=== PATIENT | female | born 1975 | race Caucasian/White ===

== ENCOUNTER 2024-06-28 05:06 | Emergency (ER) | payer MEDICAID, SELFPAY ==
[2024-06-28 05:09] VITALS: BP 187/118; PULSE 69; RESP 19; TEMP 37.1; O2SAT 100; BMI 37.1
--- NOTE | 2024-06-28 05:30 | PD.EDRME ---
Rapid Medical Screening Exam RME Arrival date/time: 06/28/24 05:06 49-year-old female past medical history of cholecystectomy and hypertension presents emergency department complaining of abdominal pain with nausea vomiting and elevated blood pressure. Chief Complaint: General Adult/Misc Complain Time Seen by Provider: 06/28/24 05:25 Vital signs: Vital Signs Temperature 98.7 F 06/28/24 05:09 Pulse Rate 69 06/28/24 05:09 Respiratory Rate 19 06/28/24 05:09 Blood Pressure 187/118 H 06/28/24 05:09 Pulse Oximetry (%) 100 06/28/24 05:09 Oxygen Delivery Method Room Air 06/28/24 05:09 Vital signs reviewed by provider: Yes
[2024-06-28] MEDS: ONDANSETRON ODT 4 MG TABRAP PO (05:57)
[2024-06-28 06:29] LABS: Basophils # (Auto) 0.1 Thou/mm3 (0.0-0.2); Basophils % (Auto) 1 % (0-2.5); Eosinophils # (Auto) 0.1 Thou/mm3 (0.0-0.5); Eosinophils % (Auto) 0 % (0-10); Hemoglobin 11.8 g/dL (12.0-16.0); Immature Granulocytes % (Auto) 1 % (0-0); Immature Granulocytes Auto 0.07 Thou/mm3 (0.00-0.00); Lymphocytes # (Auto) 1.2 Thou/mm3 (1.0-4.8); Lymphocytes % (Auto) 9 % (10-50); Mean Corpuscular HGB Conc 31.9 g/dl (31.0-37.0); Mean Corpuscular Hemoglobin 24.8 pg (25.0-35.0); Mean Corpuscular Volume 78 fL (80-100); Monocytes # (Auto) 0.9 Thou/mm3 (0.0-0.8); Monocytes % (Auto) 7 % (0-12); Neutrophils # (Auto) 10.8 Thou/mm3 (1.8-7.7); Neutrophils % (Auto) 83 % (37-80); Nucleated Red Blood Cell % 0 /100 WBC (0); Platelet Count 335 Thou/mm3 (140-440); RDW Standard Deviation 44.9 fL (36.4-46.3); Red Blood Count 4.75 Miln/mm3 (4.00-5.20)
[2024-06-28 06:54] LABS: Alanine Aminotransferase 34 U/L (10-49); Albumin, Serum 4.4 gm/dL (3.5-5.0); Albumin/Globulin Ratio 1.4 (1.2-2.2); Alkaline Phosphatase 51 U/L (46-116); Anion Gap 12 (7-16); Aspartate Amino Transferase 30 U/L (0-34); BUN/Creatinine Ratio 15 Ratio (12-20); Bilirubin,Total 0.8 mg/dL (0.3-1.2); Blood Urea Nitrogen 12 mg/dL (9-23); Calcium 9.8 mg/dL (8.3-10.6); Calcium (Corrected) 9.8 mg/dL (8.5-10.1); Carbon Dioxide 24.5 mMol/L (20.0-31.0); Chloride 104 mMol/L (98-107); Creatinine (Component) 0.8 mg/dL (0.6-1.3); Estimated Creatinine Clearance 106.1 mL/min (>60); Globulin 3.1 gm/dL (2.3-3.5); Glucose 123 mg/dL (74-106); Lipase 39 U/L (12-53); Osmolality,Calculated 280 (275-295); Potassium 3.1 mMol/L (3.4-5.1); Sodium 140 mMol/L (136-145); Total Protein 7.5 gm/dL (5.7-8.2); eGFR > 60 See Note
[2024-06-28 07:10] LABS: HCG,Qualitative Serum Negative
== END 2024-06-28 07:21 | disposition left against medical advice (07) ==
LOC: SERX 05:40
PROVIDERS: Emergency Provider Emergency Medicine; PCP Family Medicine
DX: R10.9 Unspecified abdominal pain (principal); R11.2 Nausea with vomiting, unspecified; I10 Essential (primary) hypertension; Z53.29 Procedure and treatment not carried out because of patient's decision for other reasons
CPT/HCPCS: 36415; 80053; 80307; 81001; 83690; 84703; 85025; 99281; Q0162

== ENCOUNTER 2025-02-18 08:46 | Emergency (ER) | payer MEDICAID, SELFPAY ==
[2025-02-18] VITALS (8 sets, daily range): BP systolic 159–190; BP diastolic 84–95; PULSE 57–89; RESP 16–20; TEMP 36.6–38.1; O2SAT 97–100; BMI 36.6
--- NOTE | 2025-02-18 10:00 | EKG_ITS ---
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
--- NOTE | 2025-02-18 10:00 | XR_ITS ---
Examination: AP chest single view Technique one AP portable upright chest single view Date and time: February 18, 2025, 10:15 AM, comparison November 05, 2011 INDICATIONS: Weakness chest pain today. FINDINGS: Normal heart size No pneumonia or pulmonary edema The osseous structures are demineralized IMPRESSION: No pneumonia or pulmonary edema
[2025-02-18] MEDS: RINGERS LACTATED 1000 ML 1,000 ML 999 ML IV (10:12)
[2025-02-18 10:44] LABS: Basophils # (Auto) 0.0 Thou/mm3 (0.0-0.2); Basophils % (Auto) 0 % (0-2.5); Eosinophils # (Auto) 0.0 Thou/mm3 (0.0-0.5); Eosinophils % (Auto) 0 % (0-10); Hematocrit 35.6 % (36.0-46.0); Hemoglobin 11.6 g/dL (12.0-16.0); Immature Granulocytes Auto 0.04 Thou/mm3 (0.00-0.00); Lymphocytes # (Auto) 0.7 Thou/mm3 (1.0-4.8); Lymphocytes % (Auto) 6 % (10-50); Mean Corpuscular HGB Conc 32.6 g/dl (31.0-37.0); Mean Corpuscular Hemoglobin 25.3 pg (25.0-35.0); Mean Corpuscular Volume 78 fL (80-100); Monocytes # (Auto) 0.6 Thou/mm3 (0.0-0.8); Monocytes % (Auto) 5 % (0-12); Neutrophils # (Auto) 10.7 Thou/mm3 (1.8-7.7); Neutrophils % (Auto) 89 % (37-80); Nucleated Red Blood Cell # 0.00 Thou/mm3 (0.00-0.00); Nucleated Red Blood Cell % 0 /100 WBC (0); Platelet Count 347 Thou/mm3 (140-440); RDW Standard Deviation 38.0 fL (36.4-46.3); Red Blood Count 4.59 Miln/mm3 (4.00-5.20); White Blood Count 12.1 Thou/mm3 (3.6-11.0)
[2025-02-18] MEDS: METOCLOPRAMIDE INJ 5 MG/ML VIAL 2 ML IVP (10:51)
[2025-02-18] MEDS: MORPHINE SULF INJ 4 MG/ML VIAL 2 MG IVP (10:54)
[2025-02-18 10:55] LABS: HCG,Qualitative Serum Negative
[2025-02-18 10:59] LABS: Alanine Aminotransferase 62 U/L (10-49); Albumin, Serum 4.7 gm/dL (3.5-5.0); Albumin/Globulin Ratio 1.8 (1.2-2.2); Alkaline Phosphatase 44 U/L (46-116); Anion Gap 14 (7-16); Aspartate Amino Transferase 26 U/L (0-34); BUN/Creatinine Ratio 11 Ratio (12-20); Bilirubin,Total 0.8 mg/dL (0.3-1.2); Blood Urea Nitrogen 10 mg/dL (9-23); Calcium 10.3 mg/dL (8.3-10.6); Calcium (Corrected) 10.3 mg/dL (8.5-10.1); Carbon Dioxide 24.0 mMol/L (20.0-31.0); Chloride 99 mMol/L (98-107); Creatinine (Component) 0.9 mg/dL (0.6-1.3); Estimated Creatinine Clearance 90.4 mL/min (>60); Globulin 2.6 gm/dL (2.3-3.5); Glucose 114 mg/dL (74-106); Lipase 33 U/L (12-53); Osmolality,Calculated 273 (275-295); Potassium 3.2 mMol/L (3.4-5.1); Sodium 137 mMol/L (136-145); Total Protein 7.3 gm/dL (5.7-8.2); Troponin I < 0.002 ng/mL (0.0-0.045); eGFR > 60 See Note
--- NOTE | 2025-02-18 11:32 | EDNOTE_ITS ---
Nausea/Vomit./Diarrhea-RME/HPI General Chief complaint: Nausea/Vomiting/Diarrhea Stated complaint: NAUSEA AND VOMITING Time Seen by Provider: 02/18/25 08:53 Arrival date/time: 02/18/25 08:46 Limitations: no limitations RME / HPI RME / HPI Narrative: 49 year old female with medical history notable for chronic nausea vomiting, chronic abdominal pain, s/p cholecystectomy presents to the ED BIBA from home for evaluation of nausea and vomiting today. Reports symptoms today are slightly worse than usual, prompting ED visit. No other associated symptoms reported. Denies fevers, chills, chest pain, cough, shortness of breath, diarrhea, constipation, or urinary symptoms. Per medics, patients blood pressure was 212/100. Related Data Previous Rx's ?Medication ?Instructions ?Recorded ondansetron 4 mg disintegrating 4 mg PO Q8H PRN nausea and 02/04/24 tablet vomiting #10 tabs metoclopramide HCl 5 mg tablet 5 mg PO Q12H PRN nausea and 02/18/25 (Reglan) vomiting #4 tabs Allergies Allergy/AdvReac Type Severity Reaction Status Date / Time No Known Allergies Allergy Verified 06/28/24 05:15 Review of Systems Review of Systems Systems Reviewed: All systems reviewed, normal except as documented Past Medical History Past Medical History RESPIRATORY: Positive Asthma GASTROINTESTINAL: Positive Gastrointestinal Disorders, Pancreatitis, Gall Bladder Disease, Ulcer and Gastroesophageal Reflux Disease REPRODUCTIVE: Positive Previous Pregnancies MUSCULOSKELETAL: Positive Carpal Tunnel Syndrome PSYCHO/SOCIAL: Positive Anxiety OTHER HISTORY: Positive Hospitalization, Blood Transfusions and Anesthesia Reactions Family History FAMILY HISTORY: Positive Family Psychiatric Problems, Family Cardiac Disorders, Family Cancer and Family Surgery Surgical History SURGICAL: Positive Tubal Ligation and Section Social History SMOKING STATUS: Current some day smoker SUBSTANCE USE: marijuana ED Exam General Limitations: Present no limitations General appearance: Present alert and in no apparent distress Head Head exam: Present atraumatic Eye Eye exam: Present normal appearance, PERRL and EOMI ENT ENT exam: Present normal exam, normal oropharynx and mucous membranes moist Neck Neck exam: Present normal inspection, full ROM and trachea midline Chest Chest inspection: Present normal inspection and symmetric chest wall rise Respiratory Respiratory exam: Present normal lung sounds bilaterally Cardiovascular Cardiovascular exam: Present regular rate, normal rhythm and normal heart sounds Abdominal Exam Abdominal exam: Present soft and normal bowel sounds; Absent distention, tenderness (mild tenderness to palpation in the epigastrium), guarding, rebound or rigidity Extremities Exam Extremities exam: Present normal inspection and full ROM Neurological Exam Neurological exam: Present alert and oriented X3 Psychiatric Psychiatric exam: Present normal affect and normal mood Skin Skin exam: Present warm, dry, intact and normal color Course Quality Measures none Orders Category Date Time Status EKG (ED ONLY) *Do not use* NOW Care 02/18/25 10:01 Completed CXR [XR chest 1V] Stat Exams 02/18/25 10:00 Completed EKG (ED Only) Stat Exams 02/18/25 10:00 Draft CBC Stat Lab 02/18/25 10:10 Completed CMP [Comprehensive Metabolic Panel] Stat Lab 02/18/25 10:10 Completed Drug Screen,Urine Stat Lab 02/18/25 11:58 Completed HCG,Qualitative Serum Stat Lab 02/18/25 10:10 Completed Lipase Stat Lab 02/18/25 10:10 Completed Troponin I Stat Lab 02/18/25 10:10 Completed UA, C/S IF [Urinalysis, C/S if Indicated] Stat Lab 02/18/25 11:58 Completed DiphenhydrAMINE INJ [Benadryl Inj] Med 02/18/25 12:18 Discontinued 25 mg IM X1 ONE Haloperidol Lactate [Haldol Inj] Med 02/18/25 12:18 Discontinued 2 mg IM X1 ONE Labetalol IV [Trandate IV] Med 02/18/25 10:00 Discontinued 10 mg IVP X1 ONE Labetalol IV [Trandate IV] Med 02/18/25 11:13 Discontinued 10 mg IVP X1 ONE Lidocaine 2% Viscous [Xylocaine 2% Viscous] Med 02/18/25 14:04 Discontinued 15 ml PO X1 ONE Metoclopramide Inj [Reglan Inj] Med 02/18/25 10:00 Discontinued 5 mg IVP STAT STA Morphine* Inj Med 02/18/25 10:28 Discontinued 2 mg IVP STAT STA Potassium Chloride [K-Dur] Med 02/18/25 12:18 Discontinued 40 meq PO X1 ONE Ringers Lactated 1000 ml [Lactated Ringers] 1,000 ml Med 02/18/25 10:00 Discontinued IV 999 mls/hr mg Hyd/Al Hyd/Eloisa Susp [Maalox Susp] Med 02/18/25 14:04 Discontinued 30 ml PO X1 ONE Vital Signs Vital signs: Vital Signs Temperature 97.9 F 02/18/25 08:49 Pulse Rate 58 L 02/18/25 08:49 Respiratory Rate 20 02/18/25 08:49 Blood Pressure 166/84 H 02/18/25 08:49 Pulse Oximetry (%) 98 02/18/25 08:49 Oxygen Delivery Method Room Air 02/18/25 08:49 Pulse ox is 98% on room air which is adequate. Nausea/Vomiting/Diarrhea MDM Narrative MDM Narrative:: Patient is a 49-year-old female with medical history notable for chronic nausea vomiting, is in the emergency department with concerns for elevated blood pressure. Vital signs and exam as listed. Patient without any chest pain, no shortness of breath, no headache, no weakness, no focal neurodeficits, less likely hypertensive emergency. Patient has been dealing with a problem with chronic nausea, is pending an endoscopy and colonoscopy with the finishing operator coming up soon and because of her chronic vomiting has not been able to keep down her blood pressure medications. Patient does not want us to workup her chronic vomiting at this time given that she is well-connected as an outpatient. Would like help with management of her symptoms of nausea so she can take care of her blood pressure medications at home. Labs with evidence of leukocytosis 12.1, left shift of 89%. Patient hemoglobin 11.6, this is patient's baseline. Patient potassium is 3.2 will replete in the emergency department. Creatinine normal, no acute significant transaminitis. Troponin not elevated. Patient's not . Chest x-ray normal. EKG performed today at 10:21a normal sinus rhythm, nonspecific T wave changes, no critical care. On reevaluation 12:17p patient is feeling better however continues to feel some nausea. Is requesting additional medication for nausea. She is hemodynamically stable and not in distress. Will provide patient with additional medication for nausea relief and will discharge home Patient data External records reviewed:: [facility] previous records and EMS form Clinical information provided by:: patient and EMS Social determinants that could affect healthcare access:: substance use (Marijuana ) Patient has the following chronic illnesses:: chronic nausea vomiting, chronic abdominal pain, s/p cholecystectomy How is presenting disease/condition affected by chronic disease/condition?: exacerbated by Evaluation data The following diagnostics were reviewed and interpreted by me:: lab results, radiology exam(s) and EKG tracing(s) Lab and/or radiology exams considered but not ordered:: None Interpretation Summary: See MDM Medications / Prescriptions Medications / Prescriptions considered but not ordered:: None Medication administrations:: Medication Administration History Discontinued Medications Al Hydrox/Mg Hydrox/Simethicone (Mg Hyd/Al Hyd/Eloisa (Maalox Reg) Susp 30 Ml Udc) 30 ml PO X1 ONE Stop: 02/18/25 14:05 Last Admin: 02/18/25 14:17 Dose: 30 ml Documented By: DB Diphenhydramine HCl (Diphenhydramine Inj 50 Mg/Ml Vial) 25 mg IM X1 ONE Stop: 02/18/25 12:19 Last Admin: 02/18/25 12:49 Dose: 25 mg Documented By: BY Haloperidol Lactate (Haloperidol Lact Inj 5 Mg/Ml Vial) 2 mg IM X1 ONE Stop: 02/18/25 12:19 Last Admin: 02/18/25 12:48 Dose: 2 mg Documented By: BY Lactated Ringer's (Lactated Ringers) 1,000 mls @ 999 mls/hr IV .Q1H1M ONE Stop: 02/18/25 11:00 Last Infusion: 02/18/25 11:13 Dose: Infused Documented By: Admin: 02/18/25 10:12 Dose: 999 mls/hr Documented By: BY Labetalol HCl (Labetalol Inj 5 Mg/Ml Vial 20 Ml) 10 mg IVP X1 ONE Stop: 02/18/25 10:01 Last Admin: 02/18/25 10:18 Dose: Not Given Documented By: BY Non-Admin Reason: Cancelled by Provider Labetalol HCl (Labetalol Inj 5 Mg/Ml Vial 20 Ml) 10 mg IVP X1 ONE Stop: 02/18/25 11:14 Last Admin: 02/18/25 14:04 Dose: Not Given Documented By: KM Non-Admin Reason: Cancelled by Provider Lidocaine HCl (Lidocaine Viscous 2% 15 Ml Udc) 15 ml PO X1 ONE Stop: 02/18/25 14:05 Last Admin: 02/18/25 14:17 Dose: 15 ml Documented By: DB Metoclopramide HCl (Metoclopramide Inj 5 Mg/Ml Vial 2 Ml) 5 mg IVP STAT STA; Pr otocol Stop: 02/18/25 10:01 Last Admin: 02/18/25 10:51 Dose: 5 mg Documented By: BY Morphine Sulfate (Morphine Sulf Inj 4 Mg/Ml Vial) 2 mg IVP STAT STA Stop: 02/18/25 10:29 Last Admin: 02/18/25 10:54 Dose: 2 mg Documented By: BY Potassium Chloride (Potassium Chloride 20 Meq Tabcr) 40 meq PO X1 ONE Stop: 02/18/25 12:19 Last Admin: 02/18/25 12:50 Dose: 40 meq Documented By: BY See above Consultations Consultation(s) initiated? (list below): No Diagnosis Nausea Differential Diagnosis: other (See MDM) Most likely diagnosis given after review of the tests above:: Vomiting Hypertension Admission Indicated Admission indicated?: not indicated Admission Request Was there a request for admission?: No Disposition Plan Disposition Plan: Discharge Discharge Attestation Discharge Attestation: The patient and all family members were given an opportunity to ask questions and understood the discharge instructions. Discharge instructions specifically effects, indications for sooner follow up or return to the emergency department, and the expected course of current diagnosis. Patient condition: Stable Discharge Plan Plan Patient Disposition: HOME (Self Care) Prescriptions/Referrals Prescriptions/Med Rec: New metoclopramide HCl [Reglan] 5 mg tablet 5 mg PO Q12H PRN (Reason: nausea and vomiting) Qty: 4 0RF No Action ondansetron 4 mg tablet,disintegrating 4 mg PO Q8H PRN (Reason: nausea and vomiting) Qty: 10 0RF Referrals: Chandana Armenta MD [Primary Care Provider, Family Practice] - In 1 week Problem List Clinical Impression: Vomiting, Hypertension Patient/Caregiver Discharge Instructions Education Materials: Controlling High Blood Pressure, ED Vomiting and Diarrhea ... Additional Instructions: I recommend that you eat a bland diet for the next couple days. Avoid spicy foods, fatty foods, foods that are acidic. I recommend that you hydrate well. Return immediately due to worsening symptoms or new symptoms or concern. Please follow-up with a finishing operator for endoscopy and colonoscopy. Print Language: Citizen Of [place] Stand Alone Forms: Fay Award Info., Patient Portal Info Letter
[2025-02-18 12:14] LABS: Collection Type, Urine Clean Catch; WBC,Urine 0 /hpf (0-5)
[2025-02-18 12:31] LABS: Amorphous Crystals,Urine Present (Absent); Bilirubin,Urine Negative (Negative); Blood,Urine 3+ (Negative); Culture Indicated,Urine Not Indicated; Glucose, Urine Negative (Negative); Ketones,Urine 4+ (Negative); Leukocyte Esterase,Urine Negative (Negative); Nitrite,Urine Negative (Negative); PH,Urine 7.5 (5.0-7.0); Protein,Urine 1+ (Neg - Trace); RBC,Urine 18 /hpf (0-3); Specific Gravity,Urine 1.027 (1.001-1.035); Squamous Epithelial Cell,Urine 7 /hpf (0-5); Urobilinogen,Urine Negative mg/dL (0.0-1.0)
[2025-02-18 12:32] LABS: Clarity,Urine Turbid (Clear/Hazy); Color,Urine Lt-Orange (Lt Yel-Yel)
[2025-02-18 12:37] LABS: Amphetamine/Methamp Scrn,U Negative (Negative); Barbiturate Screen,Urine Negative (Negative); Benzodiazepines Screen,Urine Negative (Negative); Benzoylecgonine Screen, Ur Negative (Negative); Fentanyl Screen,Urine Negative (Negative); Opiate Screen,Urine Positive (Negative); THC Screen,Urine Positive (Negative)
[2025-02-18] MEDS: HALOPERIDOL LACT INJ 5 MG/ML VIAL 2 MG IM (12:48)
[2025-02-18] MEDS: MG HYD/AL HYD/SIME (Maalox Reg) SUSP 30 ML UDC PO (14:17)
[2025-02-18] MEDS: LIDOCAINE VISCOUS 2% 15 ML UDC PO (14:17)
== END 2025-02-18 14:23 | disposition home or self-care (01) ==
PROVIDERS: Emergency Provider Emergency Medicine; PCP Family Medicine
DX: R11.2 Nausea with vomiting, unspecified (principal); I10 Essential (primary) hypertension; R00.1 Bradycardia, unspecified; R53.1 Weakness; R07.9 Chest pain, unspecified; F17.200 Nicotine dependence, unspecified, uncomplicated
CPT/HCPCS: 36415; 71045; 80053; 80307; 81001; 83690; 84484; 84703; 85025; 93005; 99284; J1200; J1630; J2270; J2765; J3490; J7120; A9270